=== PATIENT | female | born 1990 | race Caucasian/White ===

== ENCOUNTER 2017-07-21 20:40 | Emergency (ER) | payer OTHER ==
[~2017-07-21] VITALS: Ht 165.1 cm; Wt 65.0 kg
[~2017-07-21 20:40] MED LIST: AMOX875 PO; ANTISOL30 RIGHT EAR
[2017-07-21 20:42] VITALS: BP 144/85; PULSE 112; RESP 16; TEMP 98.6; O2SAT 98
--- NOTE | 2017-07-21 21:55 | PD ---
HPI Chief Complaint: Related Problem Time Seen by Provider: 21:47 Travel History International Travel<30 days: No Contact w/Intl Traveler<30days: No Traveled to known affect area: No History of Present Illness HPI 26-year-old female presents to the emergency department for evaluation of vaginal bleeding during . Patient states she is approximately 6 weeks . She reports her last menstrual cycle was beginning of May. Patient is tearful my exam. She is a G1, P0. Patient is unsure of her blood type. She states that she has had spotting, but today the bleeding became worse. Patient denies any abnormal vaginal discharge, risk of STDs. She reports some mild abdominal cramping, none at this time. Moderate severity. No exacerbating or alleviating factors. PFSH Past Medical History Medical History: Denies Significant Hx Diminished Hearing: No ?: LMP: 05/22/17 : 1 Past Surgical History Gynecologic Surgery: Yes (CYST REMOVED FROM RIGHT BREAST) Social History Alcohol Use: No Tobacco Use: No Substance Use: No Allergies-Medications (Allergen,Severity, Reaction): Coded Allergies: Sulfa (Sulfonamide Antibiotics) (Verified Allergy, Severe, RASH, 07/21/17) Reported Meds & Prescriptions Reported Meds & Active Scripts Active Antipyrine/Benzocaine Otic (Benzocaine/Antipyrine) 10 Ml Soln 4 Drop RIGHT EAR Q4 PRN Amoxil (Amoxicillin) 875 Mg Tab 875 Mg PO BID 10 Days Review of Systems Except as stated in HPI: all other systems reviewed are Neg Physical Exam Narrative GENERAL: Well-nourished, well-developed female patient, afebrile. SKIN: Focused skin assessment warm/dry. HEAD: Normocephalic. Atraumatic. EYES: No scleral icterus. No injection or drainage. NECK: Supple, trachea midline. No JVD or lymphadenopathy. CARDIOVASCULAR: Regular rate and rhythm without murmurs, gallops, or rubs. RESPIRATORY: Breath sounds equal bilaterally. No accessory muscle use. Lungs sounds are clear to auscultation. GASTROINTESTINAL: Abdomen soft, non-tender, nondistended. MUSCULOSKELETAL: No cyanosis, or edema. BACK: Nontender without obvious deformity. No CVA tenderness. GENITOURINARY: Normal external genitalia without lesions or erythema. Vaginal vault with blood noted. Cervical os was closed with blood noted. No cervical motion tenderness. Uterus nontender and nonenlarged. Bilateral adnexa nontender without masses. This exam was done with RN at bedside. Data Data Last Documented VS Vital Signs Date Time Temp Pulse Resp B/P (MAP) Pulse Ox O2 Delivery O2 Flow Rate FiO2 07/21/17 20:42 98.6 112 16 144/85 (104) 98 Orders Orders Beta Hcg (Quant/Titer) (07/21/17 21:52) Complete Blood Count With Diff (07/21/17 21:52) Basic Metabolic Panel (Bmp) (07/21/17 21:52) Complete Rh (07/21/17 21:52) Us Pelvis (Ques Preg/Ectopic) (07/21/17 ) Urinalysis - C+S If Indicated (07/21/17 21:52) Iv Access Insert/Monitor (07/21/17 21:52) Ed Urine Pregnancytest Poc (07/21/17 21:52) Labs Laboratory Tests Test 07/21/17 22:00 [facility] Medical Decision Making Medical Screen Exam Complete: Yes Emergency Medical Condition: Yes Medical Record Reviewed: Yes Differential Diagnosis Threatened versus spontaneous versus ectopic Narrative Course 26-year-old female presents to the emergency department for evaluation of vaginal spotting, bleeding during . Patient reports being approximately 6 weeks . She is tearful on my exam. CBC, BMP, beta hCG , complete Rh, UA, urine test, ultrasound the pelvis are ordered and pending. Labs and US are pending. Dr. Magana will resume care and disposition of patient. Harini Baltazar Jul 21, 2017 21:55
[2017-07-21 22:39] LABS: AUTOMATED NEUTROPHIL # 4.8 TH/MM3 (1.8-7.7); BACTERIA, URINE RARE /hpf; BASOPHIL # 0.1 TH/MM3 (0-0.2); BASOPHIL % 0.6 % (0.0-2.0); BLOOD, URINE LARGE (NEG); COMMENT (UR) CULT NOT INDICATED; CULTURE IF INDICATED CULT NOT INDICATED; EOSINOPHIL # 0.2 TH/MM3 (0-0.4); EOSINOPHIL % 2.2 % (0.0-4.0); GLUCOSE,URINE NEG (NEG); HEMATOCRIT 36.9 % (35.0-46.0); HEMO FLAGS DIFF FINAL; KETONE, URINE NEG (NEG); LYMPH % 31.7 % (9.0-44.0); LYMPHOCYTE # 2.8 TH/MM3 (1.0-4.8); MEAN CELL VOLUME 91.8 FL (80.0-100.0); MEAN CORPUSCULAR HEMOGLOBIN 31.1 PG (27.0-34.0); MEAN CORPUSCULAR HGB CONC 33.8 % (32.0-36.0); MONO % 11.5 % (0.0-8.0); NITRITE,URINE NEG (NEG); PH, URINE 6.5 (5.0-8.5); PLATELET COUNT 274 TH/MM3 (150-450); RED BLOOD COUNT 4.02 MIL/MM3 (4.00-5.30); RED CELL DISTRIBUTION WIDTH 12.8 % (11.6-17.2); SQUAMOUS EPITHELIAL CELL URINE 5 /hpf (0-5); URINE COLOR LIGHT-YELLOW (YELLW/STRAW)
[2017-07-21 23:09] LABS: BICARBONATE 29.1 MEQ/L (21.0-32.0); POTASSIUM 3.6 MEQ/L (3.5-5.1)
--- NOTE | 2017-07-21 23:30 | RADRPT ---
EXAM DATE/TIME: 07/21/2017 22:19 [facility] COMPARISON: No previous studies available for comparison. INDICATIONS : Pelvic pain. LAB(S): Beta-hC MEDICAL HISTORY : Glasses. SURGICAL HISTORY : Cyst removed from right breast. ENCOUNTER: Initial ACUITY: 1 week PAIN SCORE: 4/10 LOCATION: Bilateral pelvis MEASUREMENTS: UTERUS: 8.2 x 4.9 x 4.0 cm ENDOMETRIAL STRIPE: 7 mm RIGHT OVARY: 2.6 x 2.3 x 1.6 cm LEFT OVARY: 2.1 x 1.3 x 1.7 cm FREE FLUID: No CROWN RUMP LENGTH: 0.3 = 5 WKS 6 DAYS FHR: 167 BPM FINDINGS: UTERUS: There is a single early intrauterine present. There is a small yolk sac. The gestational sa c corresponds to a 5 week 4 day menstrual age. There is a small pole the crown-rump length steffi esponds to 5 weeks six-day menstrual age. heart rate of 167 beats per minute was obtained. RIGHT OVARY: There is a small hypoechoic cystic area measuring 6 x 5 x 5 mm. LEFT OVARY: Ovary contains no mass or significant cystic lesion. MISCELLANEOUS: Trace fluid is noted in the cul-de-sac. CONCLUSION: 1. Single early intrauterine corresponding to 5 weeks six-day menstrual age. 2. Small hypoechoic cystic area in the right ovary. 3. Trace fluid in the cul-de-sac. Roddy Franklin MD on July 21, 2017 at 23:27 Board Certified Radiologist. This report was verified electronically.
[2017-07-21] MEDS ORDERED: MACR100C2 PO (23:39)
--- NOTE | 2017-07-21 23:39 | PD ---
Data Data Last Documented VS Vital Signs Date Time Temp Pulse Resp B/P (MAP) Pulse Ox O2 Delivery O2 Flow Rate FiO2 07/21/17 20:42 98.6 112 16 144/85 (104) 98 Orders Orders Beta Hcg (Quant/Titer) (07/21/17 21:52) Complete Blood Count With Diff (07/21/17 21:52) Basic Metabolic Panel (Bmp) (07/21/17 21:52) Complete Rh (07/21/17 21:52) Urinalysis - C+S If Indicated (07/21/17 21:52) Iv Access Insert/Monitor (07/21/17 21:52) Ed Urine Pregnancytest Poc (07/21/17 21:52) Us Pelvis (Ques Pr/Ect)W Trans (07/21/17 ) Labs Laboratory Tests Test 07/21/17 22:00 White Blood Count 9.0 TH/MM3 Red Blood Count 4.02 MIL/MM3 Hemoglobin 12.5 GM/DL Hematocrit 36.9 % Mean Corpuscular Volume 91.8 FL Mean Corpuscular Hemoglobin 31.1 PG Mean Corpuscular Hemoglobin Concent 33.8 % Red Cell Distribution Width 12.8 % Platelet Count 274 TH/MM3 Mean Platelet Volume 9.0 FL Neutrophils (%) (Auto) 54.0 % Lymphocytes (%) (Auto) 31.7 % Monocytes (%) (Auto) 11.5 % Eosinophils (%) (Auto) 2.2 % Basophils (%) (Auto) 0.6 % Neutrophils # (Auto) 4.8 TH/MM3 Lymphocytes # (Auto) 2.8 TH/MM3 Monocytes # (Auto) 1.0 TH/MM3 Eosinophils # (Auto) 0.2 TH/MM3 Basophils # (Auto) 0.1 TH/MM3 CBC Comment DIFF FINAL Differential Comment Urine Color LIGHT-YELLOW Urine Turbidity CLEAR Urine pH 6.5 Urine Specific Ryan 1.007 Urine Protein NEG mg/dL Urine Glucose (UA) NEG mg/dL Urine Ketones NEG mg/dL Urine Occult Blood LARGE Urine Nitrite NEG Urine Bilirubin NEG Urine Urobilinogen LESS THAN 2.0 MG/DL Urine Leukocyte Esterase NEG Urine RBC LESS THAN 1 /hpf Urine WBC 2 /hpf Urine Squamous Epithelial Cells 5 /hpf Urine Amorphous Sediment RARE Urine Bacteria RARE /hpf Microscopic Urinalysis Comment CULT NOT INDICATED Blood Urea Nitrogen 6 MG/DL Creatinine 0.64 MG/DL Random Glucose 88 MG/DL Calcium Level 8.7 MG/DL Sodium Level 140 MEQ/L Potassium Level 3.6 MEQ/L Chloride Level 104 MEQ/L Carbon Dioxide Level 29.1 MEQ/L Anion Gap 7 MEQ/L Estimat Glomerular Filtration Rate 113 ML/MIN Human Chorionic Gonadotropin, Quant 7800 MIU/ML MDM Supervised Visit with STORM: Yes Narrative Course I, Dr. Magana, have reviewed the advance practice practitioner's documentation and am in agreement, met with the patient face to face, made the diagnosis, and the medical decision making was done by me. See her note for further details. Briefly this a 26-year-old female here for evaluation of and vaginal bleeding. Pelvic exam performed by my mid-level shows a closed cervix with some blood in the cervical os comment from the cervix. Beta hCG is 7800. Blood type is A+. Pelvic ultrasound shows an IUP at 5 weeks 6 days with a normal heart rate. Patient made aware of all findings. She will be started on Macrobid for bacteriuria during . She was advised to follow -up with her [employer] Dr. Dunn this week. She was informed on when to return to the emergency department patient verbalizes understanding and agreement with plan. Diagnosis Primary Impression: Threatened Additional Impression: Bacteriuria during Referrals: [employer] 3 days Additional Instruction: Follow-up with your [employer] physician this week. Return to the emergency department for worsening symptoms or any other concerns. Scripts Nitrofurantoin Monohydrate Macrocrystals (Macrobid) 100 Mg Cap 100 MG PO BID for Infection for 7 Days, #14 CAP 0 Refills Prov: Chi Magana MD 07/21/17 Disposition: 01 DISCHARGE HOME Condition: Stable Chi Magana MD Jul 21, 2017 23:39
== END 2017-07-22 00:19 | disposition home or self-care (01) ==
LOC: NEPC 20:40
DX: O20.0 Threatened abortion (principal); R82.71 Bacteriuria; N83.201 Unspecified ovarian cyst, right side; O34.81 Maternal care for other abnormalities of pelvic organs, first trimester; Z3A.01 Less than 8 weeks gestation of pregnancy; Z88.2 Allergy status to sulfonamides
CPT/HCPCS: 76700; 76817; 80048; 81001; 84702; 84703; 85025; 86901; 99284